=== PATIENT | male | born 1965 | race Caucasian/White ===

== ENCOUNTER 2020-01-28 06:08 | Inpatient (IN) ==
[2020-01-28] MEDS ORDERED: NiCARdipine 2.5 MG/10 ML Syringe IVPB ONE (06:26)
[2020-01-28] MEDS ORDERED: CeFAZolin Syr 2,000MG/20 ML 2,000 MG/20 ML SYRINGE IVPB ONE (06:29)
[2020-01-28] MEDS ORDERED: *HR* Rocuronium Bromide 50 MG/5 ML VIAL ONE (06:31)
[2020-01-28] MEDS ORDERED: *HR* PHENYLEPHRINE 1,000 MCG/10 ML SYRINGE IVP ONE (06:31)
[2020-01-28] MEDS ORDERED: *HR* FentaNYL (PF) 1,000 MCG/20 ML VIAL ONE (06:31)
[2020-01-28] MEDS ORDERED: *HR* Midazolam HCl 5 MG/5 ML VIAL IVP ONE (06:31)
[2020-01-28] MEDS ORDERED: Famotidine 20 MG/2 ML VIAL ONE (06:34)
[2020-01-28] MEDS ORDERED: *HR* Etomidate 20 MG/10 ML AMPUL IVP ONE (06:34)
[2020-01-28] MEDS ORDERED: Calcium Gluconate 1,000 MG/10 ML VIAL ONE (06:35)
[2020-01-28] MEDS ORDERED: Tranexamic Acid 1,000 MG/10 ML VIAL ONE ×2 (06:35→09:49)
[2020-01-28] MEDS ORDERED: Protamine Sulfate 250 MG/25 ML VIAL IVP ONE (06:35)
[2020-01-28] MEDS: Chlorhexidine Rinse 15 ML MOUTHWASH MM SCH ×3 (07:04→19:56)
[2020-01-28] MEDS ORDERED: Albumin Human 5% 50.0 GM/1,000 ML IV.SOLN ONE (08:14)
[2020-01-28] MEDS ORDERED: Insulin Human Regular 100 UNIT in 0.9 % Sodium Chloride 100 ML IV PRN (08:15)
[2020-01-28] MEDS ORDERED: Dextrose 50 % in Water (Vial) 30 ML, Sodium Bicarbonate 20 MEQ, Potassium Chloride 15 M... TH ONE (08:15)
[2020-01-28] MEDS ORDERED: Norepinephrine 4 MG in 0.9 % Sodium Chloride 250 ML IVC PRN (08:15)
[2020-01-28] MEDS ORDERED: Dextrose 50 % in Water (Vial) 30 ML, Sodium Bicarbonate 20 MEQ, Lidocaine 1% 5 ML, Insu... TH ONE ×3 (08:15)
[2020-01-28] MEDS ORDERED: Heparin 15,000 UNIT in 0.9 % Sodium Chloride 500 ML IV ONE (08:15)
[2020-01-28 08:19] LABS: ABG Base Excess 2 mEq/L (-2 to 3); ABG Chloride 100 mEq/L (98-107); ABG Glucose 204 mg/dL (60-95); ABG HCO3 30 mEq/L (21-27); ABG Oxygen Saturation 100 % (95-98); ABG PCO2 59 mmHg (35-45); ABG PH 7.31 pH Units (7.32-7.45); ABG PO2 503 mmHg (85-104); ABG TCO2 32 mEq/L (20-26)
[2020-01-28 09:41] LABS: ABG Base Excess -8 mEq/L (-2 to 3); ABG Chloride 117 mEq/L (98-107); ABG Glucose 162 mg/dL (60-95); ABG HCO3 16 mEq/L (21-27); ABG Ionized Calcium 0.51 mmol/L (1.15-1.35); ABG Oxygen Saturation 98 % (95-98); ABG PCO2 27 mmHg (35-45); ABG PH 7.38 pH Units (7.32-7.45); ABG PO2 101 mmHg (85-104); ABG TCO2 17 mEq/L (20-26)
[2020-01-28] MEDS ORDERED: *HR* Heparin 10,000 UNIT/10 ML VIAL IR ONE (10:17)
[2020-01-28] MEDS ORDERED: Mannitol 25% vial 12.5 GM/50 ML VIAL IVPB ONE (10:17)
[2020-01-28] MEDS ORDERED: Tranexamic Acid 1,000 MG/10 ML VIAL IR ONE (10:17)
[2020-01-28] MEDS ORDERED: *HR* Phenylephrine 10 MG/ML VIAL IVC ONE (10:17)
[2020-01-28] MEDS ORDERED: *HR* Magnesium Sulfate 2 GM/50 ML PIGGYBACK IVPB ONE (10:17)
[2020-01-28] MEDS ORDERED: Lidocaine 2% Syringe 100 MG/5 ML IVP ONE (10:17)
[2020-01-28] MEDS ORDERED: Albumin Human 25% 25 GM/100 ML IV.SOLN IVPB ONE (10:17)
[2020-01-28 10:24] LABS: ABG Base Excess 2 mEq/L (-2 to 3); ABG Chloride 99 mEq/L (98-107); ABG Glucose 287 mg/dL (60-95); ABG HCO3 28 mEq/L (21-27); ABG Ionized Calcium 0.95 mmol/L (1.15-1.35); ABG Oxygen Saturation 100 % (95-98); ABG PCO2 47 mmHg (35-45); ABG PH 7.38 pH Units (7.32-7.45); ABG PO2 552 mmHg (85-104); ABG TCO2 29 mEq/L (20-26)
[2020-01-28 10:52] LABS: ABG Base Excess 3 mEq/L (-2 to 3); ABG Chloride 98 mEq/L (98-107); ABG Glucose 273 mg/dL (60-95); ABG HCO3 28 mEq/L (21-27); ABG Ionized Calcium 0.96 mmol/L (1.15-1.35); ABG Oxygen Saturation 100 % (95-98); ABG PCO2 46 mmHg (35-45); ABG PO2 583 mmHg (85-104); ABG TCO2 30 mEq/L (20-26)
[2020-01-28] MEDS ORDERED: Albumin Human 5% 12.5 GM/250 ML IV.SOLN ONE ×2 (11:21→11:25)
[2020-01-28] MEDS ORDERED: EPINEPHrine 1 MG/ML VIAL ONE (11:27)
[2020-01-28 11:29] LABS: ABG Base Excess 0 mEq/L (-2 to 3); ABG Chloride 100 mEq/L (98-107); ABG Glucose 218 mg/dL (60-95); ABG HCO3 26 mEq/L (21-27); ABG Ionized Calcium 0.98 mmol/L (1.15-1.35); ABG Oxygen Saturation 100 % (95-98); ABG PCO2 47 mmHg (35-45); ABG PH 7.35 pH Units (7.32-7.45); ABG PO2 478 mmHg (85-104); ABG TCO2 28 mEq/L (20-26)
[2020-01-28] MEDS ORDERED: *HR* Promethazine 25 MG/ML VIAL IVP PRN (12:30)
[2020-01-28] MEDS ORDERED: Insulin Regular, Human 100 UNIT/ML IV PRN (12:30)
[2020-01-28] MEDS ORDERED: Naloxone 0.4 MG/ML INJ IVP PRN (12:30)
[2020-01-28] MEDS ORDERED: *HR* Dextrose 50 % in Water (Vial) 50 ML VIAL IVP PRN (12:30)
[2020-01-28] MEDS ORDERED: Potassium Chloride 40 MEQ/200 ML BAG IVPB PRN (12:30)
[2020-01-28] MEDS ORDERED: Acetaminophen 325 MG TABLET PO PRN (12:30)
[2020-01-28] MEDS ORDERED: Ondansetron 4 MG/2 ML VIAL IVP PRN (12:30)
[2020-01-28 13:08] LABS: ABG Base Excess 3 mEq/L (-2 to 3); ABG HCO3 29 mEq/L (21-27); ABG Oxygen Saturation 99 % (95-98); ABG PCO2 48 mmHg (35-45); ABG PH 7.39 pH Units (7.32-7.45); ABG PO2 123 mmHg (85-104); ABG TCO2 30 mEq/L (20-26); Blood Gas Modality ASSIST CONTROL; Blood Gas VT 700 cc
[2020-01-28] MEDS: Albumin Human 5% 12.5 GM/250 ML IV.SOLN IVPB PRN ×2 (13:17→15:24)
[2020-01-28 13:21] LABS: Eosinophils % 0.4 %; Immature Granulocytes % 0.5 % (0-4); Immature Platelets 9.4 % (1.1-6.1); Mean Corpuscular Volume 92.5 fL (83.0-100.0); Mean Platelet Volume 10.7 fL (9.4-12.4); Red Cell Distribution Width 12.7 % (11.5-14.5)
[2020-01-28 13:22] LABS: Basophils # 0.1 K/mcL (0.0-0.2); Basophils % 0.4 %; Eosinophils # 0.1 K/mcL (0.0-0.6); Hematocrit 39.2 % (37.5-50.1); Lymphocytes % 7.5 %; Mean Corpuscular HGB Conc 33.2 g/dL (31.6-35.5); Mean Corpuscular Hemoglobin 30.7 pg (28.0-33.3); Monocytes # 0.4 K/mcL (0.0-1.3); Monocytes % 2.7 %; Red Blood Count 4.24 M/mcL (4.19-5.50); Segmented Neutrophils % 88.5 %; White Blood Count 13.6 K/mcL (4.3-11.1)
[2020-01-28 13:23] LABS: Platelet Count 95 K/mcL (140-400)
[2020-01-28 13:28] LABS: INR 1.3; Prothrombin Time 14.7 Seconds (9.4-12.1)
[2020-01-28 13:30] LABS: Activated Partial Thrombo Time 28.8 Seconds (26.0-36.0)
[2020-01-28] MEDS: niCARdipine 20 MG/200 ML MLS IVC SCH ×4 (13:35→22:32)
[2020-01-28] MEDS: 0.9 % Sodium Chloride 1,000 ML IVC SCH (13:41)
[2020-01-28] MEDS: Insulin Human Regular 100 UNIT in 0.9 % Sodium Chloride 100 ML IVC SCH ×2 (13:44→14:49)
[2020-01-28] MEDS: Norepinephrine 4 MG/254 ML IV.SOLN IVC SCH ×2 (13:46→15:45)
[2020-01-28 13:53] LABS: BUN/Creatinine Ratio 17 (6-26); Blood Urea Nitrogen 10 mg/dL (6-20); Calcium 7.8 mg/dL (8.6-10.3); Carbon Dioxide 30 mEq/L (23-29); Chloride 105 mEq/L (98-107); Glucose 148 mg/dL (70-105); Magnesium 2.2 mg/dL (1.6-2.6); Osmolality,Calculated 292 (280-300); Potassium 3.9 mEq/L (3.5-5.1); Sodium 140 mEq/L (136-145); eGFR For African Americans > 60 (> 60); eGFR For Non-African Americans > 60 (> 60)
[2020-01-28] MEDS: *HR* OxyCODONE/APAP 5/325 TABLET PO PRN ×2 (14:29→20:01)
[2020-01-28] MEDS ORDERED: clonazePAM 0.5 MG TABLET PO ONE (15:00)
[2020-01-28] MEDS: *HR* FentaNYL (PF) 100 MCG/2 ML VIAL IVP PRN ×2 (15:20→21:08)
[2020-01-28] MEDS: CeFAZolin 2 GM/120 ML BAG IVPB SCH (15:21)
[2020-01-28 16:42] LABS: ABG Base Excess 4 mEq/L (-2 to 3); ABG HCO3 31 mEq/L (21-27); ABG Oxygen Saturation 97 % (95-98); ABG PCO2 54 mmHg (35-45); ABG PH 7.36 pH Units (7.32-7.45); ABG PO2 96 mmHg (85-104); ABG TCO2 32 mEq/L (20-26); Blood Gas VT 700 cc
[2020-01-29] MEDS: CeFAZolin 2 GM/120 ML BAG IVPB SCH (00:11)
[2020-01-29] MEDS: *HR* OxyCODONE/APAP 5/325 TABLET PO PRN ×2 (00:26→07:07)
[2020-01-29] MEDS: *HR* FentaNYL (PF) 100 MCG/2 ML VIAL IVP PRN ×5 (01:36→22:59)
[2020-01-29] MEDS: 0.9 % Sodium Chloride 1,000 ML IVC SCH (03:57)
[2020-01-29] MEDS: niCARdipine 20 MG/200 ML MLS IVC SCH ×2 (03:58→08:49)
[2020-01-29 04:13] LABS: Basophils % 0.4 %; Mean Platelet Volume 11.3 fL (9.4-12.4)
[2020-01-29 04:15] LABS: Basophils # 0.1 K/mcL (0.0-0.2); Eosinophils % 0.2 %; Hematocrit 36.5 % (37.5-50.1); Hemoglobin 11.8 g/dL (12.9-16.9); Immature Granulocytes % 0.4 % (0-4); Immature Platelets 8.8 % (1.1-6.1); Lymphocytes # 1.4 K/mcL (0.6-4.6); Lymphocytes % 9.9 %; Mean Corpuscular HGB Conc 32.3 g/dL (31.6-35.5); Mean Corpuscular Hemoglobin 31.1 pg (28.0-33.3); Mean Corpuscular Volume 96.3 fL (83.0-100.0); Monocytes # 1.3 K/mcL (0.0-1.3); Monocytes % 8.8 %; Neutrophils # 11.6 K/mcL (1.6-8.9); Platelet Count 129 K/mcL (140-400); Red Blood Count 3.79 M/mcL (4.19-5.50); Red Cell Distribution Width 12.9 % (11.5-14.5); Segmented Neutrophils % 80.3 %; White Blood Count 14.5 K/mcL (4.3-11.1)
[2020-01-29 04:40] LABS: BUN/Creatinine Ratio 16 (6-26); Blood Urea Nitrogen 10 mg/dL (6-20); Calcium 7.9 mg/dL (8.6-10.3); Carbon Dioxide 26 mEq/L (23-29); Chloride 103 mEq/L (98-107); Glucose 153 mg/dL (70-105); Osmolality,Calculated 284 (280-300); Potassium 4.5 mEq/L (3.5-5.1); Sodium 136 mEq/L (136-145); eGFR For African Americans > 60 (> 60); eGFR For Non-African Americans > 60 (> 60)
[2020-01-29] MEDS ORDERED: clonazePAM 0.5 MG TABLET PO PRN ×2 (07:01→09:08)
[2020-01-29] MEDS ORDERED: Pantoprazole 40 MG VIAL IVP SCH (09:00)
[2020-01-29] MEDS ORDERED: Aspirin 81 MG TAB.CHEW PO SCH (09:00)
[2020-01-29] MEDS: Chlorhexidine Rinse 15 ML MOUTHWASH MM SCH ×2 (09:00→20:02)
[2020-01-29] MEDS ORDERED: Acetaminophen 325 MG TABLET PO PRN (09:08)
[2020-01-29] MEDS ORDERED: *HR* Promethazine 25 MG/ML VIAL IVP PRN (09:08)
[2020-01-29] MEDS ORDERED: D5% in Water 1,000 ML IVC PRN (09:08)
[2020-01-29] MEDS ORDERED: *HR* Dextrose 50 % in Water (Vial) 50 ML VIAL IVP PRN (09:08)
[2020-01-29] MEDS ORDERED: *HR* FentaNYL (PF) 100 MCG/2 ML VIAL IVP PRN ×2 (09:08→12:13)
[2020-01-29] MEDS ORDERED: Naloxone 0.4 MG/ML INJ IVP PRN (09:08)
[2020-01-29] MEDS ORDERED: Dextrose Gel 15 GM/37.5 ML TUBE PO PRN ×2 (09:08)
[2020-01-29] MEDS ORDERED: *HR* OxyCODONE/APAP 5/325 TABLET PO PRN (09:08)
[2020-01-29] MEDS ORDERED: Ondansetron 4 MG/2 ML VIAL IVP PRN (09:08)
[2020-01-29] MEDS: Insulin LISPRO 300 UNITS/3 ML VIAL SQ SCH ×4 (09:49→20:02)
[2020-01-29] MEDS: *HR* OxyCODONE/APAP 10/325 TABLET PO PRN ×2 (16:02→20:01)
[2020-01-29] MEDS: *HR* Heparin 5,000 UNIT/ML VIAL SQ SCH (17:30)
[2020-01-29] MEDS: Insulin DETEMIR 100 UNIT/ML X5UNITS SQ SCH (20:05)
[2020-01-30] MEDS: *HR* OxyCODONE/APAP 10/325 TABLET PO PRN ×6 (00:04→20:44)
[2020-01-30 06:21] LABS: Basophils % 0.2 %; Eosinophils % 0.3 %; Hematocrit 34.7 % (37.5-50.1); Hemoglobin 10.9 g/dL (12.9-16.9); Immature Granulocytes % 0.3 % (0-4); Lymphocytes # 1.8 K/mcL (0.6-4.6); Lymphocytes % 12.7 %; Mean Corpuscular HGB Conc 31.4 g/dL (31.6-35.5); Mean Corpuscular Hemoglobin 30.4 pg (28.0-33.3); Mean Corpuscular Volume 96.7 fL (83.0-100.0); Mean Platelet Volume 11.5 fL (9.4-12.4); Monocytes # 1.8 K/mcL (0.0-1.3); Monocytes % 12.7 %; Neutrophils # 10.5 K/mcL (1.6-8.9); Platelet Count 134 K/mcL (140-400); Red Blood Count 3.59 M/mcL (4.19-5.50); Segmented Neutrophils % 73.8 %; White Blood Count 14.2 K/mcL (4.3-11.1)
[2020-01-30] MEDS: *HR* Heparin 5,000 UNIT/ML VIAL SQ SCH ×2 (06:31→16:34)
[2020-01-30 06:41] LABS: BUN/Creatinine Ratio 20 (6-26); Blood Urea Nitrogen 14 mg/dL (6-20); Calcium 8.8 mg/dL (8.6-10.3); Carbon Dioxide 25 mEq/L (23-29); Chloride 99 mEq/L (98-107); Glucose 173 mg/dL (70-105); Osmolality,Calculated 285 (280-300); Potassium 4.8 mEq/L (3.5-5.1); Sodium 135 mEq/L (136-145); eGFR For African Americans > 60 (> 60); eGFR For Non-African Americans > 60 (> 60)
[2020-01-30] MEDS: *HR* FentaNYL (PF) 100 MCG/2 ML VIAL IVP PRN ×3 (07:31→18:00)
[2020-01-30] MEDS: Pantoprazole 40 MG VIAL IVP SCH (09:07)
[2020-01-30] MEDS: Aspirin 81 MG TAB.CHEW PO SCH (09:08)
[2020-01-30] MEDS: Insulin LISPRO 300 UNITS/3 ML VIAL SQ SCH ×4 (09:08→20:39)
[2020-01-30] MEDS: Chlorhexidine Rinse 15 ML MOUTHWASH MM SCH ×2 (09:08→20:45)
[2020-01-30] MEDS: Insulin DETEMIR 100 UNIT/ML X5UNITS SQ SCH (20:44)
[2020-01-31] MEDS: *HR* OxyCODONE/APAP 10/325 TABLET PO PRN ×3 (02:30→11:31)
[2020-01-31] MEDS ORDERED: Amiodarone Premix 150 MG/100 ML BAG IVPB ONE (02:50)
[2020-01-31] MEDS ORDERED: Amiodarone Premix 360 MG/200 ML BAG IVC ONE (03:00)
[2020-01-31 05:12] LABS: Basophils % 0.4 %; Eosinophils # 0.1 K/mcL (0.0-0.6); Eosinophils % 0.7 %; Hematocrit 32.3 % (37.5-50.1); Hemoglobin 10.1 g/dL (12.9-16.9); Immature Granulocytes % 0.9 % (0-4); Lymphocytes # 1.4 K/mcL (0.6-4.6); Lymphocytes % 12.1 %; Mean Corpuscular HGB Conc 31.3 g/dL (31.6-35.5); Mean Corpuscular Hemoglobin 30.1 pg (28.0-33.3); Mean Corpuscular Volume 96.1 fL (83.0-100.0); Mean Platelet Volume 11.3 fL (9.4-12.4); Monocytes # 1.2 K/mcL (0.0-1.3); Monocytes % 10.6 %; Neutrophils # 8.5 K/mcL (1.6-8.9); Platelet Count 139 K/mcL (140-400); Red Blood Count 3.36 M/mcL (4.19-5.50); Segmented Neutrophils % 75.3 %; White Blood Count 11.3 K/mcL (4.3-11.1)
[2020-01-31 05:28] LABS: BUN/Creatinine Ratio 30 (6-26); Blood Urea Nitrogen 19 mg/dL (6-20); Calcium 8.8 mg/dL (8.6-10.3); Carbon Dioxide 27 mEq/L (23-29); Chloride 97 mEq/L (98-107); Glucose 194 mg/dL (70-105); Osmolality,Calculated 284 (280-300); Potassium 4.2 mEq/L (3.5-5.1); Sodium 133 mEq/L (136-145); eGFR For African Americans > 60 (> 60); eGFR For Non-African Americans > 60 (> 60)
[2020-01-31] MEDS: *HR* Heparin 5,000 UNIT/ML VIAL SQ SCH ×2 (05:38→16:38)
[2020-01-31] MEDS: Chlorhexidine Rinse 15 ML MOUTHWASH MM SCH ×2 (07:40→20:27)
[2020-01-31] MEDS: Pantoprazole 40 MG VIAL IVP SCH (07:40)
[2020-01-31] MEDS: Aspirin 81 MG TAB.CHEW PO SCH (07:41)
[2020-01-31] MEDS: Insulin LISPRO 300 UNITS/3 ML VIAL SQ SCH ×4 (07:42→20:23)
[2020-01-31] MEDS: Amiodarone Premix 360 MG/200 ML BAG IVC SCH ×2 (11:32→22:36)
[2020-01-31] MEDS: Insulin DETEMIR 100 UNIT/ML X5UNITS SQ SCH (20:27)
[2020-02-01] MEDS: *HR* Heparin 5,000 UNIT/ML VIAL SQ SCH ×2 (04:52→17:19)
[2020-02-01] MEDS: *HR* OxyCODONE/APAP 10/325 TABLET PO PRN ×2 (04:52→17:32)
[2020-02-01] MEDS: Aspirin 81 MG TAB.CHEW PO SCH (08:44)
[2020-02-01] MEDS: Insulin LISPRO 300 UNITS/3 ML VIAL SQ SCH ×4 (08:44→20:20)
[2020-02-01] MEDS: Chlorhexidine Rinse 15 ML MOUTHWASH MM SCH ×2 (08:45→20:19)
[2020-02-01] MEDS: Pantoprazole 40 MG VIAL IVP SCH (08:45)
[2020-02-01] MEDS: *HR* Amiodarone 200 MG TABLET PO SCH (20:14)
[2020-02-01] MEDS: Insulin DETEMIR 100 UNIT/ML X5UNITS SQ SCH (20:17)
[2020-02-02 00:58] LABS: Basophils # 0.1 K/mcL (0.0-0.2); Basophils % 0.6 %; Eosinophils # 0.4 K/mcL (0.0-0.6); Eosinophils % 4.1 %; Hematocrit 31.2 % (37.5-50.1); Immature Granulocytes % 0.6 % (0-4); Lymphocytes # 1.6 K/mcL (0.6-4.6); Lymphocytes % 16.8 %; Mean Corpuscular HGB Conc 32.1 g/dL (31.6-35.5); Mean Corpuscular Hemoglobin 30.8 pg (28.0-33.3); Mean Platelet Volume 10.3 fL (9.4-12.4); Monocytes % 9.7 %; Neutrophils # 6.7 K/mcL (1.6-8.9); Platelet Count 226 K/mcL (140-400); Red Blood Count 3.25 M/mcL (4.19-5.50); Red Cell Distribution Width 13.2 % (11.5-14.5); Segmented Neutrophils % 68.2 %; White Blood Count 9.8 K/mcL (4.3-11.1)
[2020-02-02 01:17] LABS: BUN/Creatinine Ratio 32 (6-26); Blood Urea Nitrogen 19 mg/dL (6-20); Calcium 9.1 mg/dL (8.6-10.3); Carbon Dioxide 28 mEq/L (23-29); Chloride 99 mEq/L (98-107); Glucose 143 mg/dL (70-105); Osmolality,Calculated 291 (280-300); Potassium 3.7 mEq/L (3.5-5.1); Sodium 138 mEq/L (136-145); eGFR For African Americans > 60 (> 60); eGFR For Non-African Americans > 60 (> 60)
[2020-02-02] MEDS: *HR* Heparin 5,000 UNIT/ML VIAL SQ SCH ×2 (04:52→16:55)
[2020-02-02] MEDS: *HR* Amiodarone 200 MG TABLET PO SCH ×2 (07:37→20:38)
[2020-02-02] MEDS: Aspirin 81 MG TAB.CHEW PO SCH (07:37)
[2020-02-02] MEDS: Insulin LISPRO 300 UNITS/3 ML VIAL SQ SCH ×4 (07:38→20:38)
[2020-02-02] MEDS: Chlorhexidine Rinse 15 ML MOUTHWASH MM SCH ×2 (07:39→20:37)
[2020-02-02] MEDS: Pantoprazole 40 MG VIAL IVP SCH (07:39)
[2020-02-02] MEDS: *HR* OxyCODONE/APAP 10/325 TABLET PO PRN ×2 (09:27→18:07)
[2020-02-02] MEDS: Insulin DETEMIR 100 UNIT/ML X5UNITS SQ SCH (20:38)
[2020-02-03] MEDS: *HR* OxyCODONE/APAP 10/325 TABLET PO PRN ×4 (03:34→19:56)
[2020-02-03] MEDS ORDERED: Amiodarone Premix 360 MG/200 ML BAG IVC ONE (04:24)
[2020-02-03] MEDS ORDERED: Amiodarone Premix 150 MG/100 ML BAG IVPB ONE (04:24)
[2020-02-03] MEDS: *HR* Heparin 5,000 UNIT/ML VIAL SQ SCH ×2 (05:05→16:41)
[2020-02-03] MEDS: *HR* Amiodarone 200 MG TABLET PO SCH ×2 (08:00→19:56)
[2020-02-03] MEDS: Insulin LISPRO 300 UNITS/3 ML VIAL SQ SCH ×4 (08:04→19:56)
[2020-02-03] MEDS: Pantoprazole 40 MG VIAL IVP SCH (08:04)
[2020-02-03] MEDS: Aspirin 81 MG TAB.CHEW PO SCH (08:05)
[2020-02-03] MEDS: Chlorhexidine Rinse 15 ML MOUTHWASH MM SCH ×2 (08:05→19:55)
[2020-02-03] MEDS: Amiodarone Premix 360 MG/200 ML BAG IVC SCH (11:50)
[2020-02-03] MEDS: Insulin DETEMIR 100 UNIT/ML X5UNITS SQ SCH (19:57)
[2020-02-04] MEDS: *HR* OxyCODONE/APAP 10/325 TABLET PO PRN ×3 (00:21→09:31)
[2020-02-04] MEDS: Amiodarone Premix 360 MG/200 ML BAG IVC SCH (02:11)
[2020-02-04] MEDS: *HR* Heparin 5,000 UNIT/ML VIAL SQ SCH (05:35)
[2020-02-04] MEDS: Chlorhexidine Rinse 15 ML MOUTHWASH MM SCH (08:44)
[2020-02-04] MEDS: Pantoprazole 40 MG VIAL IVP SCH (08:44)
[2020-02-04] MEDS: Aspirin 81 MG TAB.CHEW PO SCH (08:46)
[2020-02-04] MEDS: *HR* Amiodarone 200 MG TABLET PO SCH (08:47)
[2020-02-04] MEDS: Insulin LISPRO 300 UNITS/3 ML VIAL SQ SCH ×2 (08:48→12:20)
[2020-02-04 13:02] VITALS: BP 131/82
== END 2020-02-04 13:44 | disposition home or self-care (01) | DRG 166 ==
LOC: SAMDAY 06:08 → ICNU 11:01 → 2NNU 01-30 10:45
PROVIDERS: ADMIT Thoracic Surgery (Cardiothoracic Vascular Surgery); ATTEND Thoracic Surgery (Cardiothoracic Vascular Surgery)